=== PATIENT | female | born 1965 | race Caucasian/White ===

== ENCOUNTER → 2020-07-06 13:15 | Outpatient (CLI) | payer OTHER, SELFPAY ==
--- NOTE | ~2020-07-06 | MM_ITS ---
EXAMINATION: MM scrn cookie implant BI w jong HISTORY: Screening mammogram TECHNIQUE: Craniocaudal and mediolateral oblique 3-D tomosynthesis images with implant displacement a nd synthetic 2-D images were generated. Craniocaudal and mediolateral oblique views of the breasts wi thout implant displacement were obtained using full field digital mammography. CAD analysis was submi tted and interpreted. COMPARISON: 05/06/2019, 12/04/2016, 09/13/2015 BREAST PARENCHYMAL COMPOSITION: The breasts are heterogeneously dense, which may obscure small masses . FINDINGS: There is no evidence of suspicious mass, calcification, or architectural distortion to sugg est malignancy in either breast. There has been no suspicious interval change. IMPRESSION: 1. No mammographic evidence of malignancy. 2. Recommend routine screening mammography in one year. BI-RADS Category 1: Negative Reviewed, dictated and finalized at location A. P TESTER
== END ==
PROVIDERS: PCP Physician Assistant; Visit Provider Obstetrics & Gynecology
DX: Z12.31 Encounter for screening mammogram for malignant neoplasm of breast (principal)
CPT/HCPCS: 77063; 77067

== ENCOUNTER → 2021-10-25 12:29 | Outpatient (CLI) | payer OTHER, SELFPAY ==
--- NOTE | ~2021-10-25 | MM_ITS ---
EXAMINATION: MM scrn cookie implant BI w jong HISTORY: Screening mammogram TECHNIQUE: Craniocaudal and mediolateral oblique 3-D tomosynthesis images with implant displacement a nd synthetic 2-D images were generated. Craniocaudal and mediolateral oblique views of the breasts wi thout implant displacement were obtained using full field digital mammography. CAD analysis was submi tted and interpreted. COMPARISON: July 06, 2020, May 06, 2019, December 04, 2016 bilateral implant screening mammogram ex aminations BREAST PARENCHYMAL COMPOSITION: The breasts are heterogeneously dense, which may obscure small masses . FINDINGS: Status post bilateral augmentation mammoplasty. There is no evidence of suspicious mass, ca lcification, or architectural distortion to suggest malignancy in either breast. There has been no estrada spicious interval change. IMPRESSION: 1. No mammographic evidence of malignancy. 2. Recommend routine screening mammography in one year. BI-RADS Category 1: Negative Reviewed, dictated and finalized at location A.
== END ==
PROVIDERS: PCP Physician Assistant; Visit Provider Obstetrics & Gynecology
DX: Z12.31 Encounter for screening mammogram for malignant neoplasm of breast (principal)
CPT/HCPCS: 77063; 77067

== ENCOUNTER 2022-12-26 03:22 | Day surgery (SDC) | payer OTHER, SELFPAY ==
[2022-12-19 14:12] VITALS: BMI 23.3
--- NOTE | 2022-12-25 16:06 | PM.HPGS ---
History of Present Illness History of Present Illness Consent: Risks, benefits, and alternatives have been discussed and questions answered. Patient agrees to proceed with procedure. Chief complaint: occult blood in stools Narrative: Rin Starks is a 57 year old female recently had seen some blood her stools per Review of Systems Review of Systems: All systems reviewed & are unremarkable except as noted in HPI and below PMFSH Past Medical History Medical History Anxiety Vaginal delivery Surgical History Surgical History History of breast augmentation Social History Social History Smoking packs per day: 1 Smoking cigarettes per day: 20.0 Years smoked: 25 Smoking pack-years: 25.00 Smoking status: Former smoker Tobacco type: cigarettes and e-cigarettes/vaping Smoking end date: 06/01/13 Additional smoking assessment comments: VAPING SINCE EARLY Alcohol intake: current Drinks per week: 12 Alcohol use details: SHA Substance use: never Substance use type: does not use Living arrangements: with family Spiritual care concerns: No Meds Home Medications and Allergies Home Medications Medication Instructions Recorded Confirmed Type cholecalciferol (vitamin D3) 50 50 mcg PO DAILY 08/11/19 12/19/22 History mcg (2,000 unit) capsule lactobacillus combination no.8 3 3,000 mmu cells PO DAILY 08/11/19 12/19/22 History billion cell capsule (Adult Probiotic) multivitamin (Daily Multi-Vitamin 1 tablet PO DAILY 08/11/19 12/19/22 History tablet) zinc 50 mg tablet 50 mg PO DAILY 08/23/20 12/19/22 History alprazolam 0.25 mg tablet 0.5 mg PO DAILY PRN Anxiety 12/19/22 12/19/22 History estradiol-norethindrone acet 1 1 tablet PO DAILY 12/19/22 12/19/22 History mg-0.5 mg tablet (Mimvey) sertraline 100 mg tablet 100 mg PO HS 12/19/22 12/19/22 History Allergies Allergy/AdvReac Type Severity Reaction Status Date / Time No Known Allergies Allergy Verified 12/26/22 09:05 Exam Const: General: alert Orientation/consciousness: patient oriented x3 Resp: Auscultation: clear to auscultation bilaterally Cardio: Rhythm: regular rhythm GI: GI Palp: Yes Soft to palpation and No Tenderness to palpation present (GI) Neuro: General: patient oriented x3 Assessment and Plan Assessment and plan (1) Blood in stool: Code(s): K92.1 - Melena Status: Acute Assessment and Plan: Colonoscopy with possible biopsy or polypectomy or cautery or injection of substances.
[2022-12-26 09:07] VITALS: BP 165/83; PULSE 76; RESP 18; TEMP 36.2; O2SAT 99; BMI 22.5
[2022-12-26] MEDS: LACTATED RINGERS 1,000 ML 150 ML IV CONT (09:10)
--- NOTE | 2022-12-26 09:39 | WPDANESEPPF ---
Anes - Initial Pre Proc Eval Procedure: Operation Date: 12/26/22 10:00 Proposed Procedures p Colonoscopy - Connor Schaffer MD Date/Time: 12/26/22 09:39 Surgeon: Connor Schaffer MD Pre Op Diagnosis: occult blood in stools Patient Data Age: 57 Gender: F Height: 1.63 m Weight: 59.6 kg Last Vital Signs Temp 97.2 F L 12/26/22 09:07 Pulse 76 12/26/22 09:07 Resp 18 12/26/22 09:07 BP 165/83 H 12/26/22 09:07 Pulse Ox 99 12/26/22 09:07 O2 Del Method Room Air 12/26/22 09:07 Allergies Allergy/AdvReac Type Severity Reaction Status Date / Time No Known Allergies Allergy Verified 12/26/22 09:05 Home Medications Medication Instructions Recorded Confirmed Type cholecalciferol (vitamin D3) 50 50 mcg PO DAILY 08/11/19 12/19/22 History mcg (2,000 unit) capsule lactobacillus combination no.8 3 3,000 mmu cells PO DAILY 08/11/19 12/19/22 History billion cell capsule (Adult Probiotic) multivitamin (Daily Multi-Vitamin 1 tablet PO DAILY 08/11/19 12/19/22 History tablet) zinc 50 mg tablet 50 mg PO DAILY 08/23/20 12/19/22 History alprazolam 0.25 mg tablet 0.5 mg PO DAILY PRN Anxiety 12/19/22 12/19/22 History estradiol-norethindrone acet 1 1 tablet PO DAILY 12/19/22 12/19/22 History mg-0.5 mg tablet (Mimvey) sertraline 100 mg tablet 100 mg PO HS 12/19/22 12/19/22 History Patient hx anesthesia problems: none Family hx anesthesia problems: none Results Review: All pre-operative results and documents have been reviewed as part of the pre-operative evaluation. [facility] Past Medical History Medical History (Updated 12/25/22 @ 16:06 by Connor Schaffer MD) Anxiety Vaginal delivery Surgical History Surgical History History of breast augmentation Social History Social History Smoking packs per day: 1 Smoking cigarettes per day: 20.0 Years smoked: 25 Smoking pack-years: 25.00 Smoking status: Former smoker Tobacco type: cigarettes and e-cigarettes/vaping Smoking end date: 06/01/13 Additional smoking assessment comments: VAPING SINCE EARLY Alcohol intake: current Drinks per week: 12 Alcohol use details: BEERS Substance use: never Substance use type: does not use Living arrangements: with family Spiritual care concerns: No Anes - Eval Final PreProcedure Day of Procedure 12/26/22 09:39 Patient weight: normal Heart: regular rate and rhythm Lungs: clear to auscultation Airway: Mallampati scale class II Neurological: alert and oriented Last oral intake: >/= 8 hours ASA classification: II Emergent: no Anesthetic plan: proceed Anesthesia type and monitoring: general GIVS and standard monitoring Results Review: All pre-operative results and documents have been reviewed as part of the pre-operative evaluation. Informed Consent: The patient's anesthetic plan and its attendant risks and benefits were discussed with the patient/family/POA. Questions were solicited and answers provided to the satisfaction of the patient/family/POA.
[2022-12-26 10:22] VITALS: BP 104/60; PULSE 70; RESP 16; O2SAT 100
[2022-12-26 10:32] VITALS: BP 147/81; PULSE 64; RESP 22; O2SAT 99
[2022-12-26 10:42] VITALS: BP 123/81; PULSE 73; RESP 24; O2SAT 99
== END 2022-12-26 10:55 | disposition home or self-care (01) ==
PROVIDERS: PCP Physician Assistant; Visit Provider Internal Medicine Gastroenterology
PROC: 0DJD8ZZ Inspection of Lower Intestinal Tract, Via Natural or Artificial Opening Endoscopic (ICD-10-PCS; CPT 45378; principal; 2022-12-26 10:00)
DX: K63.5 Polyp of colon (principal); K64.8 Other hemorrhoids; K57.30 Diverticulosis of large intestine without perforation or abscess without bleeding; F41.9 Anxiety disorder, unspecified; F17.290 Nicotine dependence, other tobacco product, uncomplicated
CPT/HCPCS: 45384; 88305; J2704; J7120

== ENCOUNTER → 2023-03-13 10:28 | Outpatient (CLI) | payer OTHER, SELFPAY ==
--- NOTE | ~2023-03-13 | MM_ITS ---
EXAMINATION: MM scrn cookie implant BI w jong HISTORY: Screening mammogram TECHNIQUE: Craniocaudal and mediolateral oblique 3-D tomosynthesis images with implant displacement a nd synthetic 2-D images were generated. Craniocaudal and mediolateral oblique views of the breasts wi thout implant displacement were obtained using full field digital mammography. CAD analysis was submi tted and interpreted. COMPARISON: 10/25/2021, , 05/06/2019 bilateral implant screening mammogram examinations BREAST PARENCHYMAL COMPOSITION: The breasts are heterogeneously dense, which may obscure small masses . FINDINGS: Status post bilateral augmentation mammoplasty. There is no evidence of suspicious mass, ca lcification, or architectural distortion to suggest malignancy in either breast. There has been no estrada spicious interval change. IMPRESSION: 1. No mammographic evidence of malignancy. 2. Recommend routine screening mammography in one year. BI-RADS Category 1: Negative Reviewed, dictated and finalized at location A.
== END ==
PROVIDERS: PCP Physician Assistant; Visit Provider Obstetrics & Gynecology
DX: Z12.31 Encounter for screening mammogram for malignant neoplasm of breast (principal)
CPT/HCPCS: 77063; 77067

== ENCOUNTER 2024-12-15 14:33 | Outpatient (CLI) | payer OTHER, SELFPAY ==
--- NOTE | ~2024-12-15 | MM_ITS ---
EXAMINATION: MM scrn cookie implant BI w jong HISTORY: Screening TECHNIQUE: Craniocaudal and mediolateral oblique 3-D tomosynthesis images with implant displacement a nd synthetic 2-D images were generated. Craniocaudal and mediolateral oblique views of the breasts wi thout implant displacement were obtained using full field digital mammography. CAD analysis was submi tted and interpreted. COMPARISON: Comparison to multiple prior studies sequentially, with oldest reviewed study dated 09/12. BREAST PARENCHYMAL COMPOSITION: Dense: The breasts are heterogeneously dense, which may obscure small masses FINDINGS: There is no evidence of suspicious mass, calcification, or architectural distortion to sugg est malignancy in either breast. There has been no suspicious interval change. IMPRESSION: 1. No mammographic evidence of malignancy. 2. Recommend routine screening mammography in one year. BI-RADS Category 1: Negative Reviewed, dictated and finalized at location B.
== END 2024-12-15 14:34 | disposition home or self-care (01) ==
PROVIDERS: PCP Physician Assistant; Visit Provider Obstetrics & Gynecology
DX: Z12.31 Encounter for screening mammogram for malignant neoplasm of breast (principal); Z98.82 Breast implant status
CPT/HCPCS: 77063; 77067